=== PATIENT | male | born 1960 | race African-American/Black ===

== ENCOUNTER 2017-01-30 14:03 | Emergency (ER) | payer MEDICAID ==
[~2017-01-30] VITALS: Ht 180.3 cm; Wt 75.0 kg
[2017-01-30 14:04] VITALS: BP 156/93; PULSE 74; RESP 15; TEMP 98.4; O2SAT 98
--- NOTE | 2017-01-30 18:39 | PD ---
HPI Chief Complaint: Oral / Dental Pain or Problem Time Seen by Provider: 18:22 Travel History International Travel<30 days: No Contact w/Intl Traveler<30days: No Traveled to known affect area: No History of Present Illness HPI 56yo M with no significant PMH presents to the ED with c/o tooth pain for 1 week. Pt points to tooth #2 and #31. Pt felt warm but no documented fever at home. Pt did not take anything for pain. Denies any drooling, chest pain, sob, n/v, abdominal pain, weakness or numbness. Pt is able to eat and drink but states it does hurt. PFSH Past Medical History Hx Anticoagulant Therapy: No Arthritis: No Asthma: No Autoimmune Disease: No Blood Disorders: No Anxiety: No Depression: No Heart Rhythm Problems: No Cancer: No Cardiovascular Problems: Yes (HTN) High Cholesterol: No Chemotherapy: No Chest Pain: No Congestive Heart Failure: No COPD: No Cerebrovascular Accident: No Diabetes: No Diminished Hearing: No Endocrine: No Gastrointestinal Disorders: Yes GERD: Yes Glaucoma: No Genitourinary: No Headaches: No Hepatitis: No Hiatal Hernia: No Hypertension: Yes Immune Disorder: No Kidney Stones: No Musculoskeletal: Yes (CHRONIC BACK PAIN S/P FALL 07) Neurologic: No Psychiatric: No Reproductive: No Respiratory: No Migraines: No Myocardial Infarction: No Radiation Therapy: No Renal Failure: No Seizures: No Sickle Cell Disease: No Sleep Apnea: No Ulcer: No Past Surgical History Abdominal Surgery: No AICD: No Appendectomy: No Arteriovenous Shunt: No Cardiac Surgery: No Cholecystectomy: No Ear Surgery: No Endocrine Surgery: No Eye Surgery: Yes (CATARACT RT.EYE) Genitourinary Surgery: No Gynecologic Surgery: No Hysterectomy: No Insulin Pump: No Joint Replacement: No Neurologic Surgery: No Oral Surgery: Yes (TOOTH EXTRACTION) Pacemaker: No Thoracic Surgery: No Other Surgery: Yes Social History Alcohol Use: Yes (6 PK A WEEK) Tobacco Use: Yes (1/2 PACK PER WEEK) Substance Use: No Allergies-Medications (Allergen,Severity, Reaction): Coded Allergies: No Known Allergies (Verified , 01/30/17) Reported Meds & Prescriptions Reported Meds & Active Scripts Active Ibuprofen 600 Mg Tab 600 Mg PO Q8H PRN Clindamycin (Clindamycin HCl) 300 Mg Cap 300 Mg PO Q6H 7 Days Review of Systems Except as stated in HPI: all other systems reviewed are Neg Physical Exam Narrative GENERAL: 56yo M in mild distress. SKIN: Focused skin assessment warm/dry. HEAD: Atraumatic. Normocephalic. EYES: Pupils equal and round. No scleral icterus. No injection or drainage. ENT: Mouth: +TTP tooth #2, and #31. No periapical fluctuance. Multiple cavities. +Fluctuance 3cm by 3cm right hard palate. NECK: Trachea midline. No JVD. CARDIOVASCULAR: Regular rate and rhythm. No murmur appreciated. RESPIRATORY: No accessory muscle use. Clear to auscultation. Breath sounds equal bilaterally. GASTROINTESTINAL: Abdomen soft, non-tender, nondistended. Hepatic and splenic margins not palpable. MUSCULOSKELETAL: No obvious deformities. No clubbing. No cyanosis. No edema. NEUROLOGICAL: Awake and alert. No obvious cranial nerve deficits. Motor grossly within normal limits. Normal speech. PSYCHIATRIC: Appropriate mood and affect; insight and judgment normal. Data Data Last Documented VS Vital Signs Date Time Temp Pulse Resp B/P (MAP) Pulse Ox O2 Delivery O2 Flow Rate FiO2 01/30/17 14:04 98.4 74 15 156/93 (114) 98 Orders Orders Oxycodone-Acetamin 5-325 Mg (Percocet (01/30/17 18:45) Clindamycin (Cleocin) (01/30/17 18:45) Ed Discharge Order (01/30/17 19:45) [facility] Medical Decision Making Medical Screen Exam Complete: Yes Emergency Medical Condition: Yes Differential Diagnosis Dental caries vs. abscess in hard palate Narrative Course 56yo M very well appearing here with right tooth pain for 1 week. Pt is tolerating PO. No fever here. Pt has some swelling and fluctuance in right side of hard palate. Pt given clindamycin and percocet. Reevaluated at bedside and feels better. Pt wants to go home and eat. Instructed pt to follow up with dental tomorrow. I also put down our ENT information in case he is not able to follow up with dental. Return precautions given. Diagnosis Primary Impression: Tooth pain Referrals: Johnny Martinez MD call for appointment Fluctuance felt on right hard palate. Patient Instructions: General Instructions, Narcotic given in the ED Departure Forms: Tests/Procedures Additional Instructions: Please follow up with a dentist tomorrow or call ENT office if unable to follow up with dentist. Return to the ED if symptoms worsen. Med/Other Pt SpecificInfo: Prescription(s) given Scripts Ibuprofen (Ibuprofen) 600 Mg Tab 600 MG PO Q8H Y for PAIN, #20 TAB 0 Refills Prov: Destinee Roa DO 01/30/17 Clindamycin (Clindamycin) 300 Mg Cap 300 MG PO Q6H for Infection for 7 Days, #28 CAP 0 Refills Prov: Destinee Roa DO 01/30/17 Disposition: 01 DISCHARGE HOME Condition: Stable Destinee Roa DO Jan 30, 2017 18:39
[2017-01-30] MEDS ORDERED: CLINDAMYCIN 150 MG CAP PO ONE (18:45)
[2017-01-30] MEDS ORDERED: oxyCODONE/ACETAMINOPHEN 5 MG/325 MG TAB PO ONE (18:45)
[2017-01-30] MEDS ORDERED: IBUP-232 PO (19:45)
[2017-01-30] MEDS ORDERED: CLIN1CAP6 PO (19:45)
== END 2017-01-30 19:53 | disposition home or self-care (01) ==
LOC: NEPD 14:03
DX: K08.89 Other specified disorders of teeth and supporting structures (principal); I10 Essential (primary) hypertension; Z72.0 Tobacco use
CPT/HCPCS: 99283